=== PATIENT | female | born 1965 | race Caucasian/White ===

== ENCOUNTER 2022-07-18 23:25 | Emergency (ER) | payer BC ==
[2022-07-19] MEDS: Sodium Chloride 0.9% 1,000 ML IV ONE (00:09)
[2022-07-19] MEDS: HYDROmorphone 0.5 MG/0.5 ML Syringe IVPUSH ONE (00:16)
[2022-07-19] MEDS ORDERED: Propofol 200 MG/20 ML SDV ONE (00:38)
[2022-07-19] MEDS: Acetaminophen/oxyCODONE 325-5 MG Tab PO ONE (02:04)
== END 2022-07-19 02:14 | disposition short-term general hospital (02) ==
LOC: VM.ED 23:25
DX: S82.852A Displaced trimalleolar fracture of left lower leg, initial encounter for closed fracture (principal)
CPT/HCPCS: 27818; 73600; 73610; 99140; 99283; A9270; J1170; J7030; J2704